=== PATIENT | female | born 1955 | race Caucasian/White ===

== ENCOUNTER 2016-04-15 11:24 | Outpatient (CLI) ==
--- NOTE | 2016-04-15 12:05 | DI ---
EXAM: Chest two views HISTORY: Smoker, cough COMPARISON: 04/28/2014 TECHNIQUE: Two views of the chest were performed FINDINGS: The lungs are clear, excepting for granulomatous calcification. There is no pleural effu denisse or pneumothorax. The heart is normal in size. The mediastinal contour is normal. There are n o acute abnormalities of the bones. IMPRESSION: No acute cardiopulmonary process.
== END 2016-04-15 11:25 | disposition home or self-care (01) ==
LOC: RAD 11:24
PROVIDERS: ATTEND Internal Medicine
DX: R05 Cough (principal); F17.210 Nicotine dependence, cigarettes, uncomplicated

== ENCOUNTER 2017-01-17 13:33 | Outpatient (CLI) ==
--- NOTE | 2017-01-17 15:02 | DI ---
EXAM: Five views of the lumbar spine. History: Lower back pain, myeloma Findings: Cholecystectomy clips. Osteopenia. No acute fracture. Minimal anterolisthesis of L4 on L5. Moderate disc space narrowing at L5-S1. Mild to moderate disc space narrowing seen elsewhere. Endplate sclerosis and osteophyte formation. Question lytic lesion within the L4 vertebral body Mode rate to severe facet hypertrophy within the lower lumbar spine. Impression: Question L4 lytic vertebral body lesion. Recommend further evaluation with MRI
--- NOTE | 2017-01-17 15:04 | DI ---
EXAM: Three views of the thoracic spine. History: Back pain, myeloma Comparison: Thoracic spine radiograph 01/09/2017 Findings: No acute fracture or subluxation. No change in the multilevel degenerative disc space jonny rowing with endplate sclerosis and osteophyte formation. Stable chronic compression deformity at T6. There is a lytic lesion within T6. Impression: T6 lytic lesion with chronic associated compression deformity
--- NOTE | 2017-01-17 15:22 | DI ---
Exam: Four x-rays of the calvarium. Comparison: None available. Reason for exam: Back pain. FINDINGS: No acute fracture is seen within the calvarium. There is normal appearing pneumatization o f the frontal and maxillary sinuses. The orbital rims are intact. Impression: 1. No calvarial fracture or sinus opacification is seen on the radiographic images. 2. If clinical concern exists for osseous pathology, CT imaging may be performed for further charact erization.
[2017-01-18 15:14] LABS: A/G RATIO 0.7 (0.7-1.7); ALPHA-1 GLOBULIN 0.3 g/dL (0.0-0.4); ALPHA-2 GLOBULIN 0.9 g/dL (0.4-1.0); BETA GLOBULIN 3.4 g/dL (0.7-1.3); GAMMA GLOBULIN 0.3 g/dL (0.4-1.8); M-SPIKE 2.4 g/dL (Not Observed); TOTAL GLOBULINS 4.9 g/dL (2.2-3.9); URINE ALBUMIN 26.2 % (.); URINE ALPHA-1 GLOBULIN 6.3 % (.); URINE ALPHA-2 GLOBULIN 14.8 % (.); URINE BETA GLOBULIN 30.4 % (.); URINE GAMMA GLOBULIN 22.3 % (.); URINE TOTAL PROTEIN 4.4 mg/dL (Not Estab.)
== END 2017-01-17 13:34 | disposition home or self-care (01) ==
LOC: LAB 13:33
PROVIDERS: ATTEND Internal Medicine
DX: R79.89 Other specified abnormal findings of blood chemistry (principal); M54.9 Dorsalgia, unspecified
CPT/HCPCS: 36415; 84156; 84165; 84166

== ENCOUNTER 2017-01-20 09:44 | Outpatient (CLI) ==
--- NOTE | 2017-01-21 14:55 | MRI ---
EXAM: Lumbar spine MRI without contrast. HISTORY: Abnormal x-ray of L-spine. Lesion at L4. Previous reports indicate history of lower back p ain and myeloma. COMPARISON: Lumbar spine radiographs 01/17/[address] abdomen and pelvis 09/26/2011. TECHNIQUE: Multiplanar, multisequence MR images were acquired of the lumbar spine without contrast. FINDINGS: Five non-rib bearing lumbar vertebra are present. There is minor mid lumbar levoscoliosis centered at L3-4 and 2 mm degenerative anterolisthesis of L4 on L5. The lumbar vertebra are normal in height. Intrinsic bone marrow signal is heterogeneous with small areas of fatty infiltration and areas of heterogeneous increased dark T1 and T2 signal that may represent red marrow reconversion. At L1, L2 and L5, there are focal stippled bright T1 and T2, dark STIR signal lesions in the vertebra c onsistent with benign hemangiomas. At L4, there is a poorly defined lobular area of mildly dark T1 a nd T2, bright STIR signal in the right two thirds of the vertebral body. There is a prominent chroni c Schmorl's node along the left L4 inferior endplate. There is mild chronic anterior wedging of the T11 and T12 vertebra that is associated with mild kyphosis at T11-12 and there is osteophytosis with moderate to marked disc space narrowing and mild endplate irregularity that is greatest along the ant erior endplates at T11-12. This is associated with heterogeneous reactive marrow changes along the T 11-12 anterior endplates. There is disc desiccation at L1-2, L3-4, L4-5 and L5-S1 and mild disc spac e narrowing at L4-5 with a prominent chronic Schmorl's node along the L4 inferior endplate. Mild dis c space narrowing is present at L5-S1 with vacuum phenomenon. Conus medullaris ends at L1-2 and has n ormal signal intensity. The partially visualized liver, spleen and kidneys are unremarkable. L1-2: There is mild disc bulge and bilateral facet arthropathy. Ligamentum flavum hypertrophy witho ut central canal stenosis or foraminal stenosis. L2-3: There is a minor disc bulge that minimally narrows inferior neural foramina bilaterally and mi nor bilateral facet arthropathy. Mild ligamentum flavum hypertrophy. There is no central canal sten osis. L3-4: There is a mild disc bulge that is asymmetric to the left and a small left paracentral disc pr otrusion and annular fissure that effaces the left anterior subarachnoid space. Mild bilateral facet ligamentum flavum hypertrophy is present and there is mild right and mild to moderate left neural fo raminal stenosis. There is no central canal stenosis. L4-5: There is anterolisthesis of L4 on L5 and there is a mild diffuse disc bulge/pseudo disc bulge and moderate bilateral hypertrophic facet arthropathy and ligamentum flavum hypertrophy. This causes mild left neural foraminal stenosis. L5-S1: There is a diffuse disc bulge and mild bilateral hypertrophic facet arthropathy and ligamentu m flavum hypertrophy which causes mild left and mild to moderate right neural foraminal stenosis. IMPRESSION: 1. There is low T1, bright STIR signal in the right two thirds of the L4 vertebra. Given the clinic al history, this is suspicious for myeloma. 2. Small left paracentral disc protrusion L3-4. 3. 2 mm degenerative anterolisthesis L4 on L5 due to moderate bilateral hypertrophic facet arthropat hy. 4. Mild to moderate left L3-4 and mild to moderate right L5-S1 neural foraminal stenosis.
== END 2017-01-20 09:45 | disposition home or self-care (01) ==
LOC: RAD 09:44
PROVIDERS: ATTEND Internal Medicine
DX: R93.7 Abnormal findings on diagnostic imaging of other parts of musculoskeletal system (principal)

== ENCOUNTER 2017-01-24 09:36 | Outpatient (CLI) ==
--- NOTE | 2017-01-25 07:19 | MRI ---
EXAM: Thoracic spine MRI without contrast. HISTORY: Lytic lesion at T6. Prior reports indicate a history of myeloma. COMPARISON: Lumbar spine MRI 01/21/2017, CT chest 01/09/2017 and thoracic spine radiographs 01/18/20 17. TECHNIQUE: Multiplanar, multisequence MR images were acquired of the thoracic spine without contrast . FINDINGS: 12 rib-bearing thoracic vertebra are present. There is mild mid thoracic levoscoliosis an d mild increased kyphosis in the lower thoracic spine centered at T11-12. Intrinsic bone marrow sign al is heterogeneous with small areas of increased bright T1 and T2 signal fatty marrow infiltration a nd other areas of increased dark T1-T2 bone marrow that may represent red marrow reconversion or infi ltrative marrow disease. Small ventral and lateral osteophytes are present in the thoracic spine. T here is disc desiccation at T1-2 and disc space narrowing and disc desiccation from T6-7 through T10- 11. Prominent ventral osteophytes are present from T5-6 through T11-12. Canal diameter is developme ntally normal. The thoracic cord is not well seen due to decreased [id number] with decreased sp atial and contrast resolution. There is no thoracic cord syrinx or abnormal T2 signal. No paraverte bral masses are present. The visualized liver, spleen, adrenal glands and upper poles of both kidney s are unremarkable. At T6, there is an acute 10% anterior wedge compression deformity with irregular biconcave endplates and a vertically oriented focus of dark T1 and T2 signal sclerosis that extends from the superior end plate to the inferior endplate. There is mild anterior inferior cortical buckling and linear horizont ally oriented fractures extend from the anterior superior cortex and anterior inferior cortex to the posterior cortex with 1.5 mm posterior cortical bowing. Extensive low T1, bright STIR signal is pres ent in the vertebra and this is consistent with an acute pathologic mild burst fracture. There is mild T11 and minor T12 chronic anterior wedging. There is heterogeneous dark T1 and STIR si gnal sclerosis along the anterior endplates with mild bright STIR signal more peripherally along the areas of sclerosis anteriorly that courses posteriorly along the endplates. There is osteophytosis w ith moderate to marked disc space narrowing that is greatest anteriorly with endplate irregularity, v acuum phenomenon and bright STIR signal edema in the anterior intervertebral disc and disc desiccatio n posteriorly. These findings are most suggestive of chronic degenerative endplate changes with reac tive marrow changes in the anterior T11 and T12 vertebra. T1-2, T2-3: The intervertebral discs are normal. Right facet hypertrophy is present without foramin al stenosis. T3-4, T4-5: The intervertebral discs are normal. There is left facet hypertrophy and mild left neur al foraminal stenosis. T5-6: There is an acute mild burst fracture of T6 with 1.5 mm posterior cortical bowing. Prominent d orsal epidural fat is present and at the mid T6 level, there is mild spinal stenosis. AP diameter of the thecal sac is 8.2 mm. Bilateral hypertrophic facet arthropathy is present, greater on the left and there is severe left and moderately severe right neural foraminal stenosis. T6-7: The intervertebral disc is normal. Left facet hypertrophy is present. There is moderate left neural foraminal stenosis. T7-8:: The intervertebral disc is normal. Mild right facet hypertrophy is present without foraminal stenosis. T8-9 there is a minor dorsal spondylotic ridge that is asymmetric to the left which mildly indents th e thoracic cord and there is a probable superimposed left paracentral disc extrusion with proximal mi gration that is partially herniated into the left paramidline inferior endplate of T8. Right facet h ypertrophy is present. There is mild right neural foraminal stenosis. T9-10: The intervertebral disc is normal. A benign intraosseous hemangioma is present at T10. T10-11: There is a mild dorsal spondylotic ridge that is asymmetric to the right with a more focal r ight posterolateral component that effaces the right lateral recess and may minimally indent the righ t thoracic cord. Right hypertrophic facet arthropathy is present and there is right lateral recess s tenosis and severe right neural foraminal stenosis. Left facet hypertrophy is present. There is mil d to moderate left neural foraminal stenosis. T11-12: There is a dorsal spondylotic ridge that is asymmetric to the left and and a moderate left p aracentral disc protrusion and left T11 paracentral inferior endplate osteophyte that effaces the lef t lateral recess and minimally indents the left ventral thoracic cord. Right facet hypertrophy is pr esent. There is mild right foraminal stenosis. T12-L1: The intervertebral disc is normal. IMPRESSION: 1. Acute mild pathologic burst fracture at T6 with 1.5 mm posterior cortical bowing and mild spinal stenosis. 2. Mild T11 and minor T12 chronic anterior wedging. 3. Intrinsic bone marrow signal is heterogeneous with areas of fatty marrow infiltration and areas o f increased dark T1 and T2 bone marrow signal that may represent red marrow reconversion or an infilt rative disease process. 4. Mild thoracic degenerative spondylosis and facet arthropathy with multilevel foraminal stenosis.
== END 2017-01-24 09:37 | disposition home or self-care (01) ==
LOC: RAD 09:36
PROVIDERS: ATTEND Internal Medicine
DX: S24.152S Other incomplete lesion at T2-T6 level of thoracic spinal cord, sequela (principal); M54.6 Pain in thoracic spine